=== PATIENT | female | born 1995 | race Caucasian/White ===

== ENCOUNTER → 2017-12-01 | Outpatient (CLI) | payer OTHER ==
[~2017-12-01] VITALS: Ht 157.5 cm; Wt 58.5 kg
[~2017-12-01] MED LIST: ALEVE220 MG PO; PRENATAL COMPL1 EACH PO; SPRINTEC1 EACH PO
[2017-12-01 10:21] VITALS: BP 115/65
== END | disposition home or self-care (01) ==
LOC: IVINF 10:15
DX: Z34.80 Encounter for supervision of other normal pregnancy, unspecified trimester (principal); Z31.82 Encounter for Rh incompatibility status; Z3A.00 Weeks of gestation of pregnancy not specified; Z67.91 Unspecified blood type, Rh negative
CPT/HCPCS: 96372; J2790